=== PATIENT | female | born 1975 | race Caucasian/White ===

== ENCOUNTER 2017-09-17 10:09 | Day surgery (SDC) | payer BC ==
[2017-09-16 12:57] VITALS: BMI 27.3
--- NOTE | 2017-09-17 13:40 | OP ---
DATE OF PROCEDURE: 09/17/2017 SURGEON: Kaela Frank M.D. TITLE OF PROCEDURE: Esophagogastroduodenoscopy with biopsy. PREOPERATIVE DIAGNOSES: 1. Worsening reflux despite therapy. 2. Dysphagia. 3. Regurgitation. POSTOPERATIVE DIAGNOSES: 1. Examination to second portion of duodenum. 2. Small sliding hiatal hernia about 1-2 cm in length. 3. Z-line estimated at 37 cm from the incisors. 4. No evidence of stricture, stenosis or erosive esophagitis. 5. Biopsies obtained in the lower esophagus at 30 cm from the incisors for histology. 6. Normal stomach. 7. Normal duodenum. PROCEDURE IN DETAIL: Written informed consent was obtained. The patient was brought to the endoscop y suite. Total intravenous anesthesia was administered by [facility]. The patient was placed in the left lateral decubitus position. A bite block was inserted into the mouth. A [employer] video d iagnostic gastroscope was introduced into the oral cavity and the esophagus was carefully intubated. The gastroscope was advanced under direct visualization to the second portion of the duodenum. Endo scopic findings revealed a grossly normal appearing esophagus with normal appearing motility and no e vidence of bezoar or residue in the lumen. The Z-line was estimated at 37 cm. A small 1-2 cm slidin g hiatal hernia was identified. Biopsies were obtained in the lower esophagus at 30 cm from the inci sors to evaluate for any microscopic changes. The stomach was entered and carefully examined. This included a retroflexed view of the cardia and fundus. There were no abnormalities. The duodenum fro m the bulb to the second portion was then inspected and appeared grossly normal. The stomach was dec ompressed as the endoscope was removed from the patient. She was transferred to the day stay surgery area for post-procedure monitoring. There were no immediate complications. RECOMMENDATIONS: 1. Await biopsy results. 2. Ask the patient to call me in 1 week for biopsy results. 3. Continue Dexilant 60 mg b.i.d. or Nexium 40 mg b.i.d. 4. Arrange esophageal manometry at [facility]. 5. Follow up with me after the esophageal manometry study is completed.
[2017-09-17] MEDS ORDERED: Lidocaine 1% PF 5 ML VIAL ONE (15:48)
[2017-09-17] MEDS ORDERED: PROPOFOL 200 MG/20 ML VIAL ONE (15:48)
== END 2017-09-17 13:50 | disposition home or self-care (01) ==
LOC: SDC 10:09
PROVIDERS: ATTEND Internal Medicine Gastroenterology
PROC: 0DB58ZX Excision of Esophagus, Via Natural or Artificial Opening Endoscopic, Diagnostic (ICD-10-PCS; principal; 2017-09-17)
DX: R13.10 Dysphagia, unspecified (principal); K44.9 Diaphragmatic hernia without obstruction or gangrene; K21.9 Gastro-esophageal reflux disease without esophagitis; M19.90 Unspecified osteoarthritis, unspecified site; Z79.82 Long term (current) use of aspirin; Z79.899 Other long term (current) drug therapy; Z88.0 Allergy status to penicillin; Z88.8 Allergy status to other drugs, medicaments and biological substances; Z87.891 Personal history of nicotine dependence
CPT/HCPCS: 88305; 88312; 88313; J2001; J2704

== ENCOUNTER → 2017-09-28 | Day surgery (SDC) | payer BC ==
[~2017-09-28] MED LIST: Oxymetazoline HCl 0.05% ( 15 ML ) ONE
== END ==
LOC: ENDO/OP 07:36
PROVIDERS: ATTEND Internal Medicine Gastroenterology
DX: R13.10 Dysphagia, unspecified (principal); K21.9 Gastro-esophageal reflux disease without esophagitis; M19.90 Unspecified osteoarthritis, unspecified site; Z88.0 Allergy status to penicillin; Z87.891 Personal history of nicotine dependence; Z79.82 Long term (current) use of aspirin; Z79.899 Other long term (current) drug therapy; Z98.890 Other specified postprocedural states
CPT/HCPCS: 91010

== ENCOUNTER 2018-06-04 10:30 | Outpatient (CLI) | payer BC ==
[2018-06-04] MEDS ORDERED: Iopamidol 370 76% 100 ML VIAL ONE (12:44)
--- NOTE | 2018-06-04 13:32 | CT ---
CT THORAX NONCONTRAST: 06/04/2018 HISTORY: A 42-year-old female with scleroderma (systemic sclerosis) with pulmonary involvement. Increasing dy spnea. COMPARISON: High-resolution chest CT of 08/24/2012. FINDINGS: Again noted are the fibrotic changes, with prominent reticular subpleural densities, predominantly at the posterior aspects of the bilateral lower lobes, and mild involvement of small portions of the ad jacent posterior aspects of the bilateral upper lobes. No honeycombing or bronchiectasis. Because o f the differences in technique (1.2 mm slice thickness and 10 mm intervals on prior CT), a direct com parison is difficult, but there has probably been no major interval change at the lower levels. Ther e may have been slight interval worsening at the upper levels. No bronchiectasis, bullae, pleural ef fusion, pneumothorax, pericardial effusion, thoracic aortic aneurysm, or pericardial effusion. Trach ea and major bronchi are of normal caliber. No mediastinal lymphadenopathy. 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 There may or may not be mild i nterval worsening since 08/24/2012. See comments above. FRIDA Mckenzie POS: [facility]
== END 2018-06-04 10:31 | disposition home or self-care (01) ==
LOC: BICCT 10:30
PROVIDERS: ATTEND Internal Medicine Rheumatology
DX: M34.81 Systemic sclerosis with lung involvement (principal)
CPT/HCPCS: 36415; 71250; 86256

== ENCOUNTER 2018-07-05 13:10 | Outpatient (CLI) | payer BC ==
--- NOTE | 2018-07-05 13:36 | RAD ---
PA AND LATERAL CHEST: Date: 07/05/18 HISTORY: Dyspnea. FINDINGS: Heart size and mediastinum are within normal limits. Lungs are clear of infiltrates. There are some a rthritic changes of the spine. IMPRESSION: No active intrathoracic disease. POS: [facility]
== END 2018-07-05 13:11 | disposition home or self-care (01) ==
LOC: RAD 13:10
PROVIDERS: ATTEND Internal Medicine
DX: R06.00 Dyspnea, unspecified (principal)
CPT/HCPCS: 71046

== ENCOUNTER 2018-08-23 15:00 | Outpatient (CLI) | payer BC | END 2018-08-23 15:01 | disposition home or self-care (01) | LOC: SLEEPLAB 15:00 | PROVIDERS: ATTEND Internal Medicine | DX: G47.33 Obstructive sleep apnea (adult) (pediatric) (principal); R53.83 Other fatigue; R51 Headache; K21.9 Gastro-esophageal reflux disease without esophagitis; G47.00 Insomnia, unspecified; R35.1 Nocturia; G47.12 Idiopathic hypersomnia without long sleep time | CPT/HCPCS: 95806 ==

== ENCOUNTER 2021-09-02 14:30 | Outpatient (CLI) | payer BC | END 2021-09-02 14:31 | disposition home or self-care (01) | LOC: RAD 14:30 | PROVIDERS: ATTEND Internal Medicine Critical Care Medicine | DX: R06.00 Dyspnea, unspecified (principal) | CPT/HCPCS: 71046 ==